=== PATIENT | female | born 1965 | race Caucasian/White ===

== ENCOUNTER 2024-10-03 08:50 | Emergency (ER) | payer OTHER, SELFPAY ==
[2024-10-03 09:22] VITALS: BP 163/99; PULSE 86; RESP 17; TEMP 36.5; O2SAT 99
--- OUTSIDE RECORDS SUMMARY | 2024-10-03 09:27 | XMS_ITS | Clinical Summary ---
Author Organization [facility] Address [address] [place] [address] Care Team Providers Care Director Physical Name Role Phone Kristina Cheema Karley CHUN Primary Care Pr ovider Allergies No known active allergies Medications pravastatin (PRAVACHOL) 20 mg tablet take 1 tablet by oral route every day at bedtime 30 11 3 Active Additional Information Patient not taking.Reported on 03/17/2019 cetirizine-pseu doephedrine ER (ZyrTEC-D) 5-120 mg per 12 hr tablet Take one by mouth one time per day 0 0 9 Active predniSONE (DELTASONE) 10 mg tablet Take 6 tablets oral daily for 2 days then 4 tablets daily for 2 days then 3 tablets daily for 2 days then 2 tablets daily for 2 days then 1 tablet daily for 2 days then stop. 32 tablet 8 Active Additional Information Patient not taking.Reported on 03/17/2019 famotidine (PEPCID) 20 mg tablet Take 1 tablet (20 mg total) by mouth 2 (two) times a day. 30 tablet 8 Active Additional Information Patient not taking.Reported on 03/17/2019 raNITIdine (ZANTAC) 150 mg tablet Take 150 mg by mouth 2 (two) times a day Active Active Problems Problem Noted Date Diagnosed Date Atopic rhinitis 01/06/2014 Overview (11/26/2016): ALLERGIC RHINITIS NOS Generalized anxiety disorder 01/06/2014 Overview (11/26/2016): AYANA (generalized anxiety disorder) Assessment & Plan (03/02/2017 11:06 AM CDT): Increase exercise. Refer to [facility] for counseling. Try generic Zoloft 50 mg half tablet at bedtime for 8 days then full tablet daily thereafter. Side effects discussed and she is to call back if any develop. Call back in 1 month to increase the dose if no improvement. She is already scheduled for follow-up visit in May and will evaluate again at that time or sooner if needed. 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 Hx Other Medical deviated septum Family History Medical History Relation Name Comments Breast cancer Cousin 2 Cancer, breast ; Arelis in 40's Other Father 12/30 myelodysplasia ; Cause of : myelodysplasia/CABG - 60's; Diabetes Father's Sister Diabetes marleny litus; Depression Mother Depression; Relation Name Status Comments Cousin 1 Alive Cousin 2 Father 12/30 Alive Father's Sister Mother Social History Tobacco Use Types Packs/Day Years Used Date Smoking Tobacco: Every Day Comments:Smoking History Pac ks/day: 0.25 Packs Alcohol Use Standard Drinks/Week Comments Yes 0 (1 standard drink = 0.6 oz pur e alcohol) Comments Unknown Sex and Gender Information Value Date Recorded Sex Assigned at Not on file Legal Sex Female 3:03 PM [employer]LY[employer] Gender Identity Not on file Sexual Orientation Not on file Obstetrics History Last Filed Vital Signs Vital Sign Reading Time Taken Comments Blood Pressure 128/86 03/17/2019 8:33 AM CDT Pulse 88 03/17/2019 8:33 AM CDT Temperature 37 C (98.6 F) 03/17/2019 8:33 AM CDT Respiratory Rate 16 03/17/2019 8:33 AM CDT Oxygen Saturation 97% 03/17/2019 8:33 AM CDT Inhaled Oxygen Concentration - - Weight 73.3 kg (161 lb 9.6 oz) 03/17/2019 8:33 A M CDT Height 167.6 cm (5' 6 ) 03/17/2019 8:33 AM CDT Body Mass Index 26.08 03/17/2019 8:33 AM CDT Plan of Treatment Not on file Insurance [employer]US Care Teams Director Physical Relationship Specialty Start Date End Date Kristina Cheema PA PCP - General 05/15/18
--- OUTSIDE RECORDS SUMMARY | 2024-10-03 09:27 | XMS_ITS ---
Author Organization [facility] Address [address] [place] [address] Care Team Providers Care Distributor Advertising Material Name Role Phone Marcelle Hutchison Unavailable [phone] Allergies No Known Allergies REASON FOR VISIT Urticaria and angioedema follow-up - no interval episodes Medications Medication SIG (Take, Route, Frequency, Duration) Notes Start Date End Date Status Cetirizine HCl 10 MG 1 tablet Orally Twi ce a day for 30 days Active Famotidine 20 MG 1 tablet Orally Twic e a day for 30 days Active Fluticasone Propionate 50 MCG/ACT 2 sprays in each nostril Nasally Twice a day for 30 days Active EPINEPHrine 0.3 MG/0.3ML as directed Inj ection as needed for 30 days Active PriLOSEC OTC 20 MG 1 tablet 30 minutes before morning meal Orally Once a day Active Social History Tobacco Use: Social History Observation Description Date Details (start date - stop date) Current Smoker NA - NA Tobacco Control (Standard) Question Answer Notes Tobacco use: Current smoker Vital Signs Blood pressure systolic 148 mm Hg 05/17/20 24 Blood pressure diastolic 91 mm Hg 024 Height 66 in 05/17/2024 Weight 172.2 lbs 05/17/2024 BMI 27.79 kg/m2 05/17/2024 Oximetry 97 % 05/17/2024 Encounters Encounter Location Date Provider Diagnosis [facility] [address] [facility] [place] [address] 05/17/2024 Marcelle Hutchison Idiopathic urticaria L50.1 ; Allergic rhinitis due to pollen J30.1 ; Allergic rhinitis due to animal (cat) (dog) hair and dander J30.81 ; Other allergic rhinitis J30.89 ; Other chronic allergic conjunctivitis H10.45 and Angioneurotic edema, subsequent encounter T78.3XXD Assessments Encounter Date Diagnosis (ICD Code) Assessment Notes Treatment Notes Treatment Clinical Notes Section Notes 05/17/2024 Idiopathic urticaria (ICD-10 - L50.1) Considerations for hives and angioedema include autoimmune, viral, stress, or idiopathic. Labs showed normal TSH, tryptase, CMP, CBC, and sed rate. Continue treatment with Zyrtec 10 mg BID, Famotidine 20 mg BID since under good control 05/17/2024 Allergic rhinitis due to pollen (ICD-10 - J30.1) Karley clearly suffers from atopic disease based upon our skin testing and clinical history. Accordingly, we have introduced a new, aggressive medication regimen, discussed nasal washes and allergy-specific avoidance measures. We also discussed adjunctive therapies including subcutaneous, specific allergen immunotherapy as relates to the treatment and prevention of atopic disease. 05/17/2024 Allergic rhinitis due to animal (cat) (dog) hair and dander (ICD-10 - J30.81) Follow allergen avoidance, meds and consider SCIT as an adjunctive treatment to current regimen 05/17/2024 Other allergic rhinitis (ICD-10 - J30.89) 05/17/2024 Other chronic allergic conjunctivitis (ICD-10 - H10.45) Given ocular signs and symptoms I encouraged allergy avoidance measures and meds as above. If symptoms persist, consider adding additional medications including intraocular antihistamine/mast cell stabilizer, PRN 05/17/2024 Angioneurotic edema, subsequent encounter (ICD-10 - T78.3XXD) We discussed proper use of EpiPen and instruction given 05/17/2024 Other Plan Of Treatment Medication Medication Name Sig Start Date Stop Date Notes Cetirizine HCl 10 MG 1 tablet Orally Twi ce a day for 30 days Famotidine 20 MG 1 tablet Orally Twic e a day for 30 days Fluticasone Propionate 50 MCG/ACT 2 sprays in each nostril Nasally Twice a day for 30 days EPINEPHrine 0.3 MG/0.3ML as directed Inj ection as needed for 30 days Treatment Notes Assessment Notes Idiopathic urticaria Considerations for hives and angioedema include autoimmune, viral, stress, or idiopathic. Labs showed normal TSH, tryptase, CMP, CBC, and sed rate. Continue treatment with Zyrtec 10 mg BID, Famotidine 20 mg BID since under good control Allergic rhinitis due to pollen Karley pacheco suffers from atopic disease based upon our skin testing and clinical history. Accordingly, we have introduced a new, aggressive medication regimen, discussed nasal washes and allergy-specific avoidance measures. We also discussed adjunctive therapies including subcutaneous, specific allergen immunotherapy as relates to the treatment and prevention of atopic disease. Allergic rhinitis due to ani mal (cat) (dog) hair and dander Follow allergen avoidance, meds and consider SCIT as an adjunctive treatment to current regimen Other chronic allergic conjunctivitis Gi maia ocular signs and symptoms I encouraged allergy avoidance measures and meds as above. If symptoms persist, consider adding additional medications including intraocular antihistamine/mast cell stabilizer, PRN Angioneurotic edema, subsequent encounte r We discussed proper use of EpiPen and instruction given Next Appt Details Follow Up: 4 Months, Reason: Evaluation and Management Progress Notes * Pedro Pablo PLATTOB:1965 (6 8 yo F)Acc No.[id number]:05/17/2024 Progress Notes Patient: Karley GARCIA Provider: Mario Hutchison MD :1965 A ge:59 Y S ex:Female Date:05/17/2024 Address:[address] [place], [place] [id number] Subjective: * Chief Complaints: * U rticaria and angioedema follow-up - no interval episodes * HPI: * Introduction: I had the pleasure of seeing Kassi Platt, a 59 year old with GERD and new angioedema and urticaria presenting for f/u evaluation of urticaria and angioedema. She is alone for today's visit. She was last evaluated 04-12-2024. Since last visit no interval flares of hives or angioedema. She is taking Zyrtec 10 mg 1-2 times day. She is also taking famotidine. She is concerned stress may be playing a role in hives and angioedema. She has seen improvement in GERD with Pepcid For 6 months, she reports developing hives. She also reports episodes of hand swelling and eyelid swelling. She has pictures which show erythematous, raised areas a few inches in size. Hives are pruritic. No changes with heat or cold exposure. No change with pressure applied to her skin. She has a history of seasonal allergies and reports frequent congestion and rhinorrhea. She is taking Zyrtec D with some improvement. No decrease in sense of smell. No history of recurrent sinusitis. 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 She has a dog in her home. No basement in her home. Today, she reports no fevers, chills, night sweats or other constitutional symptoms. * Headache: AYANA-7 (Generalized Anxiety Disorder-7) O monroe the last 2 weeks, how often have you felt nervous, anxious, or on edge? N early every day (3) O monroe the last 2 weeks, how often have you not been able to stop or control worrying? M ore than half the days (2) O monroe the last 2 weeks how often have you been worrying too much about different things? N early every day (3) O monroe the last 2 weeks, how often have you had trouble relaxing? N early every day (3) O monroe the last 2 weeks, how often have you been so restless that it was hard to sit still? M ore than half the days (2) O monroe the last 2 weeks, how often have you become easily annoyed or irritated? S everal days (1) O monroe the last 2 weeks, how often have you felt afraid, as if something awful might happen? S everal days (1) T otal score 1 5 * ROS: A LLERGY: scratchy throat Y es. i tchy eyes Y es. e ar fullness Y es. s inus congestion Y es. P ositive p er the HPI and history, otherwise unremarkable. S PECIAL SENSES: Positve for n one. c ataracts Y es. g laucoma?No. l oss of hearing N o. i tching in ears N o. l oss of balance N o.?loss of smell N o. d ry eyes N o. e xcessive tearing Y es. i tching eyes Yes. l oss of taste N o. c onjunctivitis N o. e ar infections N o. C ONSTITUTIONAL: weight gain Y es. l oss of appetite N o. f ever?No. w eight loss N o. f atigue Y es. n ight sweats Y es. P ositive for n one. E NT: cold N o. c ough N o. e pistaxis N o. h earing loss N o. c hange in voice N o. s ore throat N o. r inging in ears?No. s inus pain N o. P ositive p er the HPI and history, otherwise unremarkable.? R ESPIRATORY: shortness of breath N o. c hest pain N o. c hest congestion N o. c ough N o. P ositive p er the HPI and history, otherwise unremakable. O PHTHALMOLOGY: diminished vision Y es. e ye irritation N o. d rainage from eyes N o. b lurring of vision N o. s easonal eye sx N o. P ositive for p er the HPI and history, otherwise unremarkable. i tching N o. s ensitivity to light N o. d ischarge N o. w atering Y es. s welling of the eyelids Y es. r edness N o. E NDOCRINOLOGY: fatigue Y es. p olydipsia N o. p olyuria N o. w eight loss N o. s leep disturbance Y es. c old intolerance N o. h eat intolerance Y es. d iabetes N o. P ositive for n one. C ARDIOLOGY: chest pain N o. l eg edema N o. d izziness N o. s hortness of breath N o. P ositive for n one. G ASTROENTEROLOGY: dysphagia N o. a bdominal pain N o. n ausea?No. v omiting N o. c onstipation N o. d iarrhea N o. b lood in stool?No. i ndigestion Y es. h emorrhoids N o. P ositive for n one. U ROLOGY: difficulty urinating N o. b lood in urine N o. u rinary incontinence Y es. r ecurrent UTI N o. P ositive for n one. ? D ERMATOLOGY: rash N o. m ole N o. l umps N o. d ry or sensitive skin N o. h paula (urticaria) Y es. a cne N o. s kin cancer N o. P ositive for p er the HPI and history, otherwise unremakable. N EUROLOGY: headache N o. t ingling numbness Y es. s eizures N o. i nsomnia Y es. m naveed loss N o. d izziness N o. g ait abnormality N o. P ositive for n one. H EMATOLOGY/LYMPH: Positive for n one. M USCULOSKELETAL: joint swelling N o. j oint pain N o. l eg cramps N o. j oint stiffness N o. s ciatica Y es. o steoporosis N o. f racture N o. c arpal tunnel N o. g out N o. P ositive for n one. ? P SYCHOLOGY: high stress level Y es. d epression Y es. s leep disturbances Y es. s uicidal ideation N o. e ating disorder N o. m ental or physical abuse N o. a nxiety Y es. P ositive for n one. F EMALE REPRODUCTIVE: heavy periods N o. h ot flashes N o. a bnormal vaginal discharge N o. s exually active N o. i nfertility N o. f requent yeat infections N o. p elvic pain N o. b reast pain N o. n ipple discharge N o. A re you ? N o. A re you planning on a future pregancy? N o. A ll other review of systems per the HPI and history, otherwise unremarkable. * Medical History: * Surgical History: C -Section 10/24/1988 * Hospitalization/Major Diagno stic Procedure: D enies Past Hospitalization * Family History: F ather: , myelodysplasia, diagnosed with Allergic rhinitis due to allergen. M other: . no history of urticaria or angioedema. * Social History: M arital Status What is your marital status? d ivorced A lcohol Screening Do you ever drink alcoholic beverages? Y es Frequency? E very 6 months S moking Have you ever smoked tobacco: c urrent smoker Additional Findings: Tobacco User M oderate cigarette smoker (10-19 cigs/day) How old were you when you started smoking? 1 6 How often do you smoke cigarettes? e very day How soon after you wake up do you smoke your first cigarette??6 - 30 minutes How many cigarettes do you smoke per day? 1 1 to 20 Are you interested in quitting? T hinking about quitting Are you a : c urrent smoker R ecreational drug use Have you ever used recreational drugs? N o D etails on consumption of certain products? Do you regularly consume products with aspartame; Equal or NutraSweet? N o Do you regularly consume products with artificial coloring??Yes Have you ever noticed worsening of your rash with these food items? N o A re any of the following personal care products containing fragrance, dye or preservatives used regularly? Shampoo: Y es Conditioner: Y es Soap: Y es Fabric Softener: Y es Deodorant: Y es Perfume, cologne, after shave: Y es Air freshners or other scented products: Y es Hair coloring dyes or rinses: Y es O ccupation Are you currenly employed? Y es Employment status? 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 number of years?39 Do you believe that your current or previous occupation has any bearing on your illness? N o Please describe the effect of your illness on your job p oor concentration Do you have any pending or planned legal action against your current or former employer which pertains to your medical illness? N o Do you anticipate that your evaluation will be used in any legal action against your current employer or former employer? N o Have you had any job with high exposure to fumes, chemicals, dust or other noxious substances? N o Are you currently a student? N o E nvironmental History Living environment: p rivate home Where is the home located? n ear any major factories or industries Age of home: 9 0 How long have you lived there? 5 years or more How many people live in the home? 1 H ome description Basement: N o Smokers in the home? Y es Air Conditioning? Y es Central Air? Y es Forced air heating? Y es Gas or electric? g as Fireplace? Y es Used how often? o ther Wood burning stove? N o Do you vacuum the home? Y es Pillow and mattress dust-proof encasings? N o Do you use a humidifier? N o Do you own any pets? Y es What kind(s)? (click all that apply) d og Where do your pets sleep? a nywhere in the house Fabric softeners used? Y es Plants in the home? Y es How many? 1 Where are they kept? k [facility] Is there carpeting in your bedroom? Y es Age of carpet? 1 6 What is the age of your mattress (years)? 3 What material(s) are used to manufacture your bedding and pillow? o ther What material are your bedding items made of? n atural fiber (e.g. cotton) Do you sleep with quilts or blankets or a duvet? Y es What material? n atural fiber (e.g. cotton) How many dogs? 1 T obacco Control (Standard) Tobacco use: C urrent smoker * Medications: T akingPriLOSEC OTC 20 MG Tablet Delayed Release 1 tablet 30 minutes before morning meal Orally Once a day Cetirizine HCl 10 MG Tablet 1 tablet Orally Twice a day Famotidine 20 MG Tablet 1 tablet Orally Twice a day Fluticasone Propionate 50 MCG/ACT Suspension 2 sprays in each nostril Nasally Twice a day EPINEPHrine 0.3 MG/0.3ML Solution Auto-injector as directed Injection as needed Taking PriLOSEC OTC 20 MG Tablet Delayed Release 1 tablet 30 minutes before morning meal Orally Once a day Taking Cetirizine HCl 10 MG Tablet 1 tablet Orally Twice a day Taking Famotidine 20 MG Tablet 1 tablet Orally Twice a day Taking Fluticasone Propionate 50 MCG/ACT Suspension 2 sprays in each nostril Nasally Twice a day Taking EPINEPHrine 0.3 MG/0.3ML Solution Auto-injector as directed Injection as needed DiscontinuedCetirizine HCl 10 MG Tablet 1 tablet Orally Once a day Medication List reviewed and reconciled with the patientDiscontinued Cetirizine HCl 10 MG Tablet 1 tablet Orally Once a day Medication List reviewed and reconciled with the patient * Allergies: N .K.D.A.no[Allergies Verified] Objective: * Vitals: B P:148/91mm Hg, HR:99/min, Pulse Oximetry:97%, Ht: 66 in, Wt: 172.2 lbs, BMI:27.79Index. * Examination: G eneral examination: General appearance: p leasant, well-developed, well-nourished. HEENT: c onjunctiva are clear bilaterally, no tenderness to palpation of the sinuses, TM's without evidence of acute infection, turbinates 2+ swollen and pale inferiorly bilaterally, clear rhinorrhea is present, deviated septum, posterior oropharynx is erythematous and cobblestoning is present, erythema on pharyngeal wall, no exudates, no tongue swelling, and uvula is midline. Oral cavity: n ormal, no lesions. Neck, thyroid : s upple, non-tender, no anterior cervical lymphadenopathy. Breasts : n ot performed. Heart: R RR, S1-S2, no murmurs, no rubs, no gallops. Lungs: c lear to auscultation and percussion in all lung betancourt, no wheezes or crackles. Neurologic exam: u nremarkable. Skin: n ormal, no rash, dermatographism, urticaria, angioedema. Peripheral pulses: n ormal (2+) bilaterally. Back: n ormal. Extremities: n ormal ROM, no clubbing, no cyanosis, no edema. Genitalia: n ot performed. Assessment: * Assessment: 1. I diopathic urticaria - L50.1 (Primary) 2 . A llergic rhinitis due to pollen - J30.1 3 . A llergic rhinitis due to animal (cat) (dog) hair and dander - J30.81 4 . O ther allergic rhinitis - J30.89 5 . O ther chronic allergic conjunctivitis - H10.45 6 . A ngioneurotic edema, subsequent encounter - T78.3XXD Plan: * Treatment: 2. A llergic rhinitis due to pollen Start Fluticasone Propionate Suspension, 50 MCG/ACT, 2 sprays in each nostril, Nasally, Twice a day, 30 days, 1, Refills 0. Notes: Karley clearly suffers from atopic disease based upon our skin testing and clinical history. Accordingly, we have introduced a new, aggressive medication regimen, discussed nasal washes and allergy-specific avoidance measures. We also discussed adjunctive therapies including subcutaneous, specific allergen immunotherapy as relates to the treatment and prevention of atopic disease. ? 3. A llergic rhinitis due to animal (cat) (dog) hair and dander Notes: Follow allergen avoidance, meds and consider SCIT as an adjunctive treatment to current regimen 4. O ther chronic allergic conjunctivitis Notes: Given ocular signs and symptoms I encouraged allergy avoidance measures and meds as above. If symptoms persist, consider adding additional medications including intraocular antihistamine/mast cell stabilizer, PRN 5. A ngioneurotic edema, subsequent encounter Notes: We discussed proper use of EpiPen and instruction given 6. O thers Start EPINEPHrine Solution Auto-injector, 0.3 MG/0.3ML, as directed, Injection, as needed, 30 days, 1, Refills 0. * Procedure Codes: 9 6160 PT-FOCUSED HLTH RISK [id number] DOC MEDS VERIFIED W/PT OR RE * Preventive Medicine: Counseling: M edication instruction: W atch for side effects of prescribed medications, Nasal steroid/antihistamine instruction: avoid septum. E ducation: G ENERAL EDUCATION: Our staff spent an additional 30 minutes in direct contact with the patient educating them on their current diagnoses and proper treatment and prevention of symptoms and the proper use of medications. E ducation 2: A RC EDUCATION: Our staff discussed the appropriate allergen avoidance measures and medication utilization including upper airway hygiene with daily nasal washes given the patient's clinical status and diagnoses. SCIT EDUCATION: Discussed allergy immunotherapy including the relative risks, benefits and alternatives to this treatment as an adjunctive measure to current therapy, Allergy Immunotherapy: Risks: bleeding, infection, allergic reaction, anaphylaxis = severe allergic reaction that can cause ; Benefits: reduced need for medications, improved symptoms, disease modification. Alternatives: watch/wait, change medication regimen, improve allergy avoidance measures, Our staff discussed the warning signs of anaphylaxis and the indications to use self-injectable epinephrine and seek urgent or emergent care. P atient education material sent to portal? Y es C are goal follow up plan BMI management provided Y es Above Normal BMI Follow-up D ietary management education, guidance, and counseling * Follow Up: 4 Months (Reason: Evaluation and Management) * Billing Information: * Visit Code: 88111 Office Visit, Est Pt., Level 4. Modifiers: 25 * Procedure Codes: 28235 PT-FOCUSED HLTH RISK ASSMT. G8427 DOC MEDS VERIFIED W/PT OR RE. * Sign off status: Completed true * Provider: Mario Hutchison MD Date: 0 05/17/2024 Generated for Brayan poe/Dewey/Savannahitting on: 0 10/03/2024 09:27 AM HOLD WORKER History and Physical Notes * HPI (History of Present Illness) Category Sub-Category Detail Notes Category Not es *Introduction I had the pleasure o f seeing Karley Platt, a 59 year old with GERD and new angioedema and urticaria presenting for f/u evaluation of urticaria and angioedema. She is alone for today's visit. She was last evaluated 04-12-2024. Since last visit no interval flares of hives or angioedema. She is taking Zyrtec 10 mg 1-2 times day. She is also taking famotidine. She is concerned stress may be playing a role in hives and angioedema. She has seen improvement in GERD with Pepcid For 6 months, she reports developing hives. She also reports episodes of hand swelling and eyelid swelling. She has pictures which show erythematous, raised areas a few inches in size. Hives are pruritic. No changes with heat or cold exposure. No change with pressure applied to her skin. She has a history of seasonal allergies and reports frequent congestion and rhinorrhea. She is taking Zyrtec D with some improvement. No decrease in sense of smell. No history of recurrent sinusitis. 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 She has a dog in her home. No basement in her home. Today, she reports no fevers, chills, night sweats or other constitutional symptoms *Headache AYANA-7 (Generalized Anxiety Disorder-7) Over the last 2 weeks, how often have you felt nervous, anxious, or on edge?: Nearly every day (3) Over the last 2 weeks, how o ften have you not been able to stop or control worrying?: More than half the days (2) Over the last 2 weeks how of ten have you been worrying too much about different things?: Nearly every day (3) Over the last 2 weeks, how o ften have you had trouble relaxing?: Nearly every day (3) Over the last 2 weeks, how o ften have you been so restless that it was hard to sit still?: More than half the days (2) Over the last 2 weeks, how o ften have you become easily annoyed or irritated?: Several days (1) Over the last 2 weeks, how o ften have you felt afraid, as if something awful might happen?: Several days (1) Total score: 15 Examination Category Sub-Category Detail Notes Category Not es General examination HEENT: conjunctiva are clear bilaterally, no tenderness to palpation of the sinuses, TM's without evidence of acute infection, turbinates 2+ swollen and pale inferiorly bilaterally, clear rhinorrhea is present, deviated septum, posterior oropharynx is erythematous and cobblestoning is present, erythema on pharyngeal wall, no exudates, no tongue swelling, and uvula is midline Neck, thyroid : supple, non-tender, no anterior cervical lymphadenopathy Heart: RRR, S1-S2, no murmu rs, no rubs, no gallops Lungs: clear to auscultatio n and percussion in all lung betancourt, no wheezes or crackles Abdomen: Extremities: normal ROM, no clubb ing, no cyanosis, no edema General appearance: pleasant, well-devel oped, well-nourished Skin: normal, no rash, isabelle matographism, urticaria, angioedema Neurologic exam: unremarkable Oral cavity: normal, no lesions Breasts : not performed Peripheral pulses: normal (2+) bilatera lly Back: normal Genitalia: not performed
--- OUTSIDE RECORDS SUMMARY | 2024-10-03 09:28 | XMS_ITS | Patient Health Record ---
Author Organization [facility] Address [address] [place] [phone] Care Team Providers Care Plsql Developer Name Role Phone Marcelle Hutchison Unavailable [phone] Allergies No Known Allergies Results Component Value Reference Range Notes -Tryptase ([id number]) Reviewed date:04/19/2024 01:20:59 PM Interpretation:Normal Performing Lab:[facility] [id number], Phone - [phone], Director - Gray Notes/Report: Tryptase 4.0 2.2-13.2 ug/L TSH reflex to T4F Reviewed date:04/19/2024 01:20:53 PM Interpretation:Normal Performing Lab:[facility] [address] [id number], Phone - [phone], Director - Francoise Notes/Report: TSH 1.550 0.450-4.500 uIU/mL -Sedimentation Rate-Westergr en Reviewed date:04/19/2024 01:20:40 PM Interpretation:Normal Performing Lab:[facility], [address] [place] [id number], Phone - [phone], Director - Francoise Notes/Report: Sedimentation Rate-Westergren 12 0-40 mm/hr -CBC With Differential/Plate let Reviewed date:04/19/2024 01:20:47 PM Interpretation:Normal Performing Lab:[facility], [address] [place] [id number], Phone - [phone], [facility]/Report: WBC 7.4 3.4-10.8 x10E3/uL RBC 5.17 3.77-5.28 x10E6/uL Hemoglobin 15.2 11.1-15.9 g/dL Hematocrit 46.1 34.0-46.6 % MCV 89 79-97 fL MCH 29.4 26.6-33.0 pg MCHC 33.0 31.5-35.7 g/dL RDW 11.9 11.7-15.4 % Platelets 323 150-450 x10E3/uL Neutrophils 59 Not Estab. % Lymphs 30 Not Estab. % Monocytes 7 Not Estab. % Eos 3 Not Estab. % Basos 1 Not Estab. % Neutrophils (Absolute) 4.3 1.4-7.0 x10E3/uL Lymphs (Absolute) 2.2 0.7-3.1 x10E3/uL Monocytes(Absolute) 0.6 0.1-0.9 x10E3/uL Eos (Absolute) 0.2 0.0-0.4 x10E3/uL Baso (Absolute) 0.1 0.0-0.2 x10E3/uL Immature Granulocytes 0 Not Estab. % Immature Grans (Abs) 0.0 0.0-0.1 x10E3/uL -CMP (14) Reviewed date:04/19/2024 01:19:16 PM Interpretation:Normal Performing Lab:[facility], [address] [place] [id number], Phone - [phone], Director - [facility] Notes/Report: Glucose 91 70-99 mg/dL BUN 8 6-24 mg/dL Creatinine 0.69 0.57-1.00 mg/dL eGFR 101 >59 mL/min/1.73 BUN/Creatinine Ratio 12 9-23 Sodium 140 134-144 mmol/L Potassium 4.2 3.5-5.2 mmol/L Chloride 103 96-106 mmol/L Carbon Dioxide, Total 22 20-29 mmol/L Calcium 9.4 8.7-10.2 mg/dL Protein, Total 7.2 6.0-8.5 g/dL Albumin 4.4 3.8-4.9 g/dL Globulin, Total 2.8 1.5-4.5 g/dL Bilirubin, Total 0.5 0.0-1.2 mg/dL Alkaline Phosphatase 86 44-121 IU/L AST (SGOT) 16 0-40 IU/L ALT (SGPT) 14 0-32 IU/L Reason For Referral No Information Medications Medication SIG (Take, Route, Frequency, Duration) [...] Question Answer Notes Tobacco use: Current smoker Problems Problem Type SNOMED Code ICD Code Onset Dates Problem Status W/U Status Risk Notes Problem Chronic allergic conjunctivitis (50573287) Other chronic allergic conjunctivitis (H10.45) Active confirmed Problem Allergic rhinitis caused by pollen (disorder) (79296162) Allergic rhinitis due to pollen (J30.1) Active confirmed Problem Allergic rhinitis (09282441) Other allergic rhinitis (J30.89) Active confirmed Problem Allergic rhinitis caused by animal hair and dander (087908084084168) Allergic rhinitis due to animal (cat) (dog) hair and dander (J30.81) Active confirmed Vital Signs Oximetry 97 % 05/17/2024 Blood pressure diastolic 91 mm Hg 05/17/2024 Height 66 in 05/17/2024 Blood pressure systolic 148 mm Hg 05/17/2024 Weight 172.2 lbs 05/17/2024 BMI 27.79 kg/m2 05/17/2024 Encounters Encounter Location Date Provider Diagnosis [facility] [address] [facility] [address] [place] [phone] 04/12/2024 Marcelle Hutchison Idiopathic urticaria L50.1 ; Angioneurotic edema, initial encounter T78.3XXA ; Allergic rhinitis due to pollen J30.1 ; Allergic rhinitis due to animal (cat) (dog) hair and dander J30.81 ; Other allergic rhinitis J30.89 and Other chronic allergic conjunctivitis H10.45 [facility] [address] [place] [phone] 05/17/2024 Marcelle Hutchison Idiopathic urticaria L50.1 ; Allergic rhinitis due to pollen J30.1 ; Allergic rhinitis due to animal (cat) (dog) hair and dander J30.81 ; Other allergic rhinitis J30.89 ; Other chronic allergic conjunctivitis H10.45 and Angioneurotic edema, subsequent encounter T78.3XXD [address] [address] 04/10/2024 Marcelle Hutchison [address] [phone] 04/10/2024 Marcelle Hutchison Assessments Encounter Date Diagnosis (ICD Code) Assessment Notes Treatment Notes Treatment Clinical Notes Section Notes 04/12/2024 Idiopathic urticaria (ICD-10 - L50.1) Considerations for hives and angioedema include autoimmune, viral, stress, or idiopathic. Plan to order labwork for further evaluation. Start treatment with Zyrtec 10 mg BID, Famotidine 20 mg BID. Follow-up in 1 month. 04/12/2024 Angioneurotic edema, initial encounter (ICD-10 - T78.3XXA) We discussed proper use of EpiPen and instruction given 05/17/2024 Idiopathic urticaria (ICD-10 - L50.1) Considerations [...] the treatment and prevention of atopic disease. 04/12/2024 Allergic rhinitis due to pollen (ICD-10 - J30.1) Given the history and symptoms, skin testing was performed to common aeroallergens to determine atopic status. Karley clearly suffers from atopic disease based [...] as an adjunctive treatment to current regimen 04/12/2024 Allergic rhinitis due to animal (cat) (dog) [...] medications including intraocular antihistamine/mast cell stabilizer, PRN 04/12/2024 Other allergic rhinitis (ICD-10 - J30.89) 04/12/2024 Other chronic allergic conjunctivitis (ICD-10 - H10.45) Given ocular signs and symptoms I encouraged allergy avoidance measures and meds as above. If symptoms persist, consider adding additional medications including intraocular antihistamine/mast cell stabilizer, PRN 05/17/2024 Angioneurotic edema, subsequent encounter (ICD-10 - T78.3XXD) We discussed proper use of EpiPen and instruction given 05/17/2024 Other Plan Of Treatment No Information Insurance Providers Payer Name Payer Address Payer Phone Subscriber Number Group Number Insured Name Patient Relationship to Insured Coverage Start Date Coverage End Date [facility] [address] [place] [address] [id number] Karley Haji Self - patient is the insured Medical (General) History Medical History History ICD Code Acid reflux Hypertension Anxiety Hypoglycemia Hyperlipidemia Surgical History Surgery Date(Month/Year) 10/24/1988
--- OUTSIDE RECORDS SUMMARY | 2024-10-03 09:28 | XMS_ITS | Referral Summary ---
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
--- OUTSIDE RECORDS SUMMARY | 2024-10-03 09:28 | XMS_ITS ---
Author Organization [facility] Address [address] [place] [address] Care Team Providers Care Retention Manager Name Role Phone Kianna Marcelle Unavailable [phone] REASON FOR VISIT ARC follow-up Encounters Encounter Location Date Provider Diagnosis [facility] [address] [place] [address] 09/06/2024 Marcelle Hutchison Plan Of Treatment No Information Progress Notes * Pedro Pablo PLATTOB:1965 ([age] yo F)Acc No.[id number]:09/06/2024 Progress Notes Patient: Karley GARCIA Provider: Mario Hutchison MD :1965 A ge:59 Y S ex:Female Date:09/06/2024 Address:[address] [place], [place] [phone] Subjective: * Chief Complaints: * 1 . ARC follow-up. * Medical History: Objective: * Vitals: Assessment: Plan: * Treatment: * Billing Information: * Visit Code: * Procedure Codes: * Electronic signature of Anastasia Hutchison MD on 10/03/2024 at 09:27 AM DIRECTOR OUTCOMES Sign off status: Pending * Provider: Mario Hutchison MD Date: 0 09/06/2024 Generated for Printi ng/Faxing/eTransmitting on: 0 10/03/2024 09:27 AM DIRECTOR OUTCOMES
--- OUTSIDE RECORDS SUMMARY | 2024-10-03 09:35 | XMS_ITS ---
Author Organization [facility] Address [address] [place] [address] Care Team Providers Care Command And Control Systems Integrator Name Role Phone Marcelle Hutchison Unavailable [phone] Allergies No Known Allergies Results Component Value Reference Range Notes -CBC With Differential/Plate let Reviewed date:04/19/2024 01:20:47 PM Interpretation:Normal Performing Lab:[facility] [place], [address] [place] [id number], Phone - [phone], Director - Francoise Notes/Report: WBC 7.4 3.4-10.8 x10E3/uL RBC 5.17 [...] % Immature Grans (Abs) 0.0 0.0-0.1 x10E3/uL -Sedimentation Rate-Westergr en Reviewed date:04/19/2024 01:20:40 PM Interpretation:Normal Performing Lab:[facility] [address] [id number], Phone - [phone], Director - [facility]berts [facility] Notes/Report: Sedimentation Rate-Westergren 12 0-40 mm/hr -CMP (14) Reviewed date:04/19/2024 01:19:16 PM Interpretation:Normal Performing Lab:[facility] [address] [id number], Phone - [phone], [facility] Notes/Report: Glucose 91 70-99 mg/dL BUN 8 [...] 0-40 IU/L ALT (SGPT) 14 0-32 IU/L -Tryptase (563817) Reviewed date:04/19/2024 01:20:59 PM Interpretation:Normal Performing Lab:[facility] [address] [id number], Phone - [phone], Director - Gray Notes/Report: Tryptase 4.0 2.2-13.2 ug/L TSH reflex to T4F Reviewed date:04/19/2024 01:20:53 PM Interpretation:Normal Performing Lab:[facility] [place], [address] [place] [id number], Phone - [phone], Director - Francoise Notes/Report: TSH 1.550 0.450-4.500 uIU/mL REASON FOR VISIT Urticaria and angioedema Medications Medication SIG (Take, Route, Frequency, Duration) Notes Start Date End Date Status PriLOSEC OTC 20 MG 1 tablet 30 minutes before morning meal Orally Once a day Active EPINEPHrine 0.3 MG/0.3ML as directed Inj ection as needed for 30 days 04/12/2024 Active Fluticasone Propionate 50 MCG/ACT 2 sprays in each nostril Nasally Twice a day for 30 days 04/12/2024 Active Cetirizine HCl 10 MG 1 tablet Orally Twi ce a day for 30 days 04/12/2024 Active Famotidine 20 MG 1 tablet Orally Twic e a day for 30 days 04/12/2024 Active Cetirizine HCl 10 MG 1 tablet Orally Onc e a day Active Social History Tobacco Use: Social History Observation Description Date Details (start date - stop date) Current Smoker NA - NA Tobacco Control (Standard) Question Answer Notes Tobacco use: Current smoker Problems Problem Type SNOMED Code ICD Code Onset Dates Problem Status W/U Status Risk Notes Problem Allergic rhinitis caused by pollen (disorder) (16711131) Allergic rhinitis due to pollen (J30.1) Active confirmed Problem Allergic rhinitis caused by animal hair and dander (644403025808533) Allergic rhinitis due to animal (cat) (dog) hair and dander (J30.81) Active confirmed Problem Allergic rhinitis (02803285) Other allergic rhinitis (J30.89) Active confirmed Problem Chronic allergic conjunctivitis (93089582) Other chronic allergic conjunctivitis (H10.45) Active confirmed Vital Signs Blood pressure systolic 112 mm Hg 04/12/20 24 Blood pressure diastolic 63 mm Hg 024 Height 66 in 04/12/2024 Weight 177.4 lbs 04/12/2024 BMI 28.63 kg/m2 04/12/2024 Oximetry 97 % 04/12/2024 Encounters Encounter Location Date Provider Diagnosis [facility] [place] [address] [facility] [address] [place] [id number] 04/12/2024 Marcelle Hutchison Idiopathic urticaria L50.1 ; Angioneurotic edema, initial encounter T78.3XXA ; Allergic rhinitis due to pollen J30.1 ; Allergic rhinitis due to animal (cat) (dog) hair and dander J30.81 ; Other allergic rhinitis J30.89 and Other chronic allergic conjunctivitis H10.45 Assessments Encounter Date Diagnosis (ICD Code) Assessment [...] proper use of EpiPen and instruction given 04/12/2024 Allergic rhinitis due to pollen (ICD-10 [...] atopic disease. 04/12/2024 Allergic rhinitis due to animal (cat) (dog) hair and dander (ICD-10 - J30.81) Follow allergen avoidance, meds and consider SCIT as an adjunctive treatment to current regimen 04/12/2024 Other allergic rhinitis (ICD-10 - J30.89) 04/12/2024 Other chronic allergic conjunctivitis (ICD-10 - H10.45) Given ocular signs and symptoms I encouraged allergy avoidance measures and meds as above. If symptoms persist, consider adding additional medications including intraocular antihistamine/mast cell stabilizer, PRN Plan Of Treatment Medication Medication Name Sig Start Date Stop Date Notes EPINEPHrine 0.3 MG/0.3ML as directed Inj ection as needed for 30 days 04/12/2024 Fluticasone Propionate 50 MCG/ACT 2 sprays in each nostril Nasally Twice a day for 30 days 04/12/2024 Cetirizine HCl 10 MG 1 tablet Orally Twi ce a day for 30 days 04/12/2024 Famotidine 20 MG 1 tablet Orally Twic e a day for 30 days 04/12/2024 Treatment Notes Assessment Notes Idiopathic urticaria Considerations for hives and angioedema include autoimmune, viral, stress, or idiopathic. Plan to order labwork for further evaluation. Start treatment with Zyrtec 10 mg BID, Famotidine 20 mg BID. Follow-up in 1 month. Angioneurotic edema, initial encounter W e discussed proper use of EpiPen and instruction given Allergic rhinitis due to pollen Given th e history and symptoms, skin testing was performed [...] medications including intraocular antihistamine/mast cell stabilizer, PRN Next Appt Details Follow Up: 4 Weeks, Reason: Evaluation and Management Procedure Notes * Category Sub-Category Detail Notes Skin Testing Number of Skin Tests Performed (including controls): Aeroallergen: Yes Epicutaneous: 72 Total (Epicutaneous): 72 Epicutaneous (New) skin testing was per formed to common aeroallergens, revealing positive reactions to, Kirill, Birch, Black Castleberry, Cuney, Elm, Mccurtain (Shagbark), Maple, Justice Mix, Lyn[place]urst Mix, [place] (Red), [place]urst (White), Allen (Yellow), Sweet Gum, Moseley (Kuwaiti), Willow Spring (Black), Bermuda, Brome, Fescue, Red/Joplin, Arpit, K. Blue (January), Orchard, Redtop, Skanee, Laz, Cocklebur, Dock, Red (Sheep [place]), Dock, Yellow, Hemp, Jace Water, Kochia, Mugwort, Plantain, French, Cat Hair, Cat Pelt, Cochroach (Mix), UF Dog, Feather Mix, Mouse, DM f, DM p, Ragweed Mix, Joan Albicans, Cladosprium, Penicillium Mix, Saccharomyces, Sarocladium Strictum, positive and negative controls responded appropriately Progress Notes * Pedro Pablo PLATTOB:1965 ([age] yo F)Acc No.[id number]:04/12/2024 Progress Notes Patient: Karley GARCIA Provider: Mario Hutchison MD :1965 A ge:58 Y S ex:Female Date:04/12/2024 Address:[address] [place] [address] Subjective: * Chief Complaints: * U rticaria and angioedema * HPI: * Introduction: I had the pleasure of seeing Kassi Platt, a 58 year old with GERD and new angioedema and urticaria presenting for evaluation of urticaria and angioedema. She is alone for today's visit. She does not have a PCP. For 6 months, she reports developing hives. She also reports episodes of hand swelling and eyelid swelling. She has pictures which show erythematous, raised areas a few inches in size. Hives are pruritic. Last week,she developed upper lip swelling and brought photos of significant swelling. She took Benadryl and improvement in swelling within 24 hours. She is developed episodes of hives and angioedema a few times monthly but not weekly. No changes with heat or cold exposure. No change with pressure applied to her skin. She has not been able to find triggers. She has a history of seasonal allergies and reports frequent congestion and rhinorrhea. S he is taking Zyrtec D with some improvement. No decrease in sense of smell. No history of recurrent sinusitis. 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 She has a dog in her home. No basement in her home. She has never undergone allergy skin testing or received allergy immunotherapy. She denies a history of physician-diagnosed allergic rhinitis, recurrent sinusitis or otitis media, recurrent pneumonia, asthma/RAD, eczema, food allergies, medication allergies, contact dermatitis, latex allergy, eosinophilic esophagitis or stinging insect hypersensitivity, . * Allergic Rhinoconjunctivitis: Allergic rhinitis D o you have or suspect you have allergic rhinitis (itchy eyes, sneezing, congestion or runny nose triggered by allergies)? Y es W hich areas and what symptoms are involved? Please fill out each section below as needed. e yes,nose,sinuses W hich of the following trigger your allergic rhinitis symptoms? t ree pollen,grass pollen,weed pollen,spring (season),summer (season),fall (season),winter (season) D o you have any of the following other symptoms associated with your allergic rhinitis? l oud snoring,restless sleep Eyes S pecific affected area: b oth (bilateral) O ccurence? i ntermittent H ow frequent? w eekly W hen does this mostly occur? a nytime S ymptoms: i tching E ffective treatments: o ral antihistamines (Zyrtec or Yadira or Claritin) Nose S pecific area affected: b oth (bilateral) O ccurence? c ontinuous W hen does this mostly occur? a nytime S ymptoms? c ongestion,sneezing jags,postnasal drainage,awaken very congested in the a.m. E ffective treatments? o ral antihistamines (Zyrtec or Yadira or Claritin) Sinuses D o you have sinus pain? N o H ave you lost sense of taste? N o H ave you been treated with antibiotics for sinusitis? N o H ave any of the following treatments improved your sinus symptoms? o ral antihistamines (Zyrtec or Yadira) H ave you ever had a CT scan or xray? N o H ave you ever undergone sinus surgery? N o Cough F requency: i nfrequent I s cough more bothersome during night? N o I s phlegm produced? Y es S putum color? c lear I s significant phlegm produced during the night? Y es E ffective treatments? r eflux medications (TUMS or Zantac or Prilosec) * Infections: Vaccination History H ave you ever had a flu shot? Y es D ate of last flu shot? 0 04/24/2019 H ave you ever had a pneumococcal vaccine (HYE-Yncocba-Fqopuvezd)? N o H ave you ever had a tetanus vaccine (FQxi-Saiv-Jp)? Y es D ate of last tetanus vaccine? 0 04/24/2019 D id it contain pertussis as well? Y es Ear Infections D o you have frequent ear infections? N o Sinusitis (Sinus infections) D o you have frequent episodes of sinusitis??No Sinus Symptoms and Surgery D o you have chronic or recurrent sinus symptoms? Y es H ave you used any of the following treatments for your sinuses? n vivek spray decongestants,oral antihistamines,oral decongestants W hich provided benefit? o ral antihistamines,oral decongestants H ave you ever had a sinus CT or X-Ray? N o H ave your ever undergone sinus surgery? N o Bronchitis History D o you get frequent bronchitis? N o Pneumonia History H ave you ever had pneumonia or recurrent pneumonia? Y es H ow many episodes in your entire life? 1 H ow many episodes in the past 12 months? 0 H ave you been treated with antibiotics for pneumonia? Y es H ave you been hospitalized for treatment??Yes Skin and Other Infections D o you get frequent skin infections (cellulitis)? N o D o you get any other frequent infections??No * Other Rash and Contact Dermatitis: Other rashes and contact dermatitis H ave you ever had any other form of rash or contact dermatitis? N o * Urticaria: Urticaria (hives) D o you have recurrent hives? Y es A pproximately, when did your hives start??08/23/2023 H ow many weeks of symptoms have you had in your whole life? (adding up total days of symptoms throughout your whole life) l ess than 6 weeks H ow many hives outbreaks have you had in your whole life? 2 H ow many outbreaks have you had in the past 12 months? 2 H ow frequently do you have hives outbreaks??yearly H ow long do outbreaks last (whole rash)? 2 4-72 hours H ow long does one individual hive last? If you were to [place] one hive with a pen, how long would that area be affected? 2 4-72 hours W hat time(s) of day do your hives occur? a ny time (no predilection) C olor of your hives? r ed B ramon parts involved? l egs T ypical number of separate hives? 2 T ypical size of hives? > 10 cm D escription of hives? r aised above the surrounding unaffected skin,poorly-defined border S ymptoms of hives? i tching,swelling D o any of the following physical stimuli initate or worsen your hives? s harp (scratching) pressure A ssociated symptoms? a ngioedema (swelling) D o you get angioedema (deep swelling) with your hives? (angioedema is painful, not itchy and commonly lasts for days) - If yes fill out the Angioedema page in this questionnaire y es - sometime W hat improves your hives? o ral antihistamines (e.g. Zyrtec or Zantac) A s the hives resolve, are there skin changes??no (normal skin returns) D o you use any of the following personal care products that contain fragrance, dyes or preservatives? s hampoo,conditioner,soap,laundry detergent,fabric softener,deodorant,other D o you regularly consume products with aspartame (Equal or NutraSweet)? N o D o you ever take any of the following medications? N onsteroids anti-inflammatories (NSAIDs like ibuprofen or Advil or Motrin or naproxen or Aleve) * Medication allergy: Medication Allergy D o you feel you are allergic to any medications? N o H ave you been evaluated by an credit report checker previously for possible drug allergy? N o * Stinging Insects: Insect Reaction(s) H ave you ever experienced a stinging insect reaction? N o * Prior Evaluations and Treatments: Prior evaluations and treatments H ave you been evaluated by another physician for allergic rhinitis, cough, wheezing, asthma, urticaria, angioedema, atopic dermatitis or eczema??Yes W hat type(s) of of provider(s)? O ther H ave you undergone testing for any aforementioned conditions or symptoms? N o H ave you ever been on allergy immunotherapy??No H ave you ever passed out during a blood draw, shot or vaccination? N o Last dose of antihistamine: c etirizine (Zyrtec) 0 03/27/2024 d iphenhydramine (Benadryl) 0 04/04/2024 H as your antihistamine been effective in controlling any of your symptoms? Y es S ymptoms related to what condition(s)? a llergic rhinitis,urticaria or hives,angioedema or swelling D o you take any other psychiatric medication??No * Food allergy: Food Allergy D o you currently have or have you ever had any proven or suspected food allergies? N o * Eosinophilic GI: Eosinophilic Gastrointestinal Disease D o you have difficulty swallowing foods or have you previously needed to have your esophagus dilated for food impaction or have you been diagnosed with eosinophilic gastrointestinal disease? N o * Angioedema: Angioedema (swelling) D o you have recurrent swelling (angioedema)??Yes A pproximately, when was your last episode of swelling? 0 04/05/2024 H ow frequently do you have symptoms? o ther H ow long do episodes of swelling last? 2 4-72 hours H ow long does one spot of swelling last? If you were to [place] one spot with a pen, how long would the area be affected? 2 4-72 hours W hat time(s) of day does the swelling occur??anytime (no predilction) B ramon parts involved? a sophie,eyelids,upper lip A s the swelling resolves, does the skin change in appearance? n o (normal skin returns) W hat improves the angioedema/swelling? o ral antihistamine (Zyrtec or Yadira) I s there any family history of unexplained swelling, life-threatening swelling or early or unexplained ? N o D o you ever take any of the following medications? N onsteroids anti-inflammatories (NSAIDs like ibuprofen or Advil or Motrin or naproxen or Aleve),Vitamins,Supplements * ROS: A LLERGY: scratchy throat Y [...] Past Hospitalization * Family History: F ather: myelodysplasia, diagnosed with Allergic rhinitis due to allergen. no history of urticaria or angioedema. * [...] use: C urrent smoker * Medications: T akingCetirizine HCl 10 MG Tablet 1 tablet Orally Once a day PriLOSEC OTC 20 MG Tablet Delayed Release 1 tablet 30 minutes before morning meal Orally Once a day Medication List reviewed and reconciled with the patientTaking Cetirizine HCl 10 MG Tablet 1 tablet Orally Once a day Taking PriLOSEC OTC 20 MG Tablet Delayed Release 1 tablet 30 minutes before morning meal Orally Once a day Medication List reviewed and reconciled with the patient * Allergies: N .K.D.A.no[Allergies Verified] Objective: * Vitals: B P:112/63mm Hg, HR:73/min, Pulse Oximetry:97%, Ht: 66 in, Wt: 177.4 lbs, BMI:28.63Index. * Examination: G eneral examination: General appearance: [...] urticaria - L50.1 (Primary) 2 . A ngioneurotic edema, initial encounter - T78.3XXA 3 . A llergic rhinitis due to pollen - J30.1 ?4. A llergic rhinitis due to animal (cat) (dog) hair and dander - J30.81 5 . O ther allergic rhinitis - J30.89 6 . O ther chronic allergic conjunctivitis - H10.45 Plan: * Treatment: 2. A ngioneurotic edema, initial encounter Start EPINEPHrine Solution Auto-injector, 0.3 MG/0.3ML, as directed, Injection, as needed, 30 days, 1, Refills 0. Notes: We discussed proper use of EpiPen and instruction given 3. A llergic rhinitis due to pollen Start Fluticasone Propionate Suspension, 50 MCG/ACT, 2 sprays in each nostril, Nasally, Twice a day, 30 days, 1, Refills 0. Notes: Given the history and symptoms, skin testing [...] the treatment and prevention of atopic disease. 4. A llergic rhinitis due to animal (cat) (dog) hair and dander Notes: Follow allergen avoidance, meds and consider SCIT as an adjunctive treatment to current regimen 5. O ther chronic allergic conjunctivitis Notes: Given ocular signs and symptoms I encouraged allergy avoidance measures and meds as above. If symptoms persist, consider adding additional medications including intraocular antihistamine/mast cell stabilizer, PRN * Procedures: S kin Testing: Number of Skin Tests Performed (including controls): A eroallergen Y es E picutaneous 7 2 T otal (Epicutaneous) 7 2 Epicutaneous (New) s kin testing was performed to common aeroallergens, revealing positive reactions to, Vanzant, Birch, Black Castleberry, Cuney, Elm, Mccurtain (Shagbark), Maple, Justice Mix, [place]urst Mix, [place]st (Red), [place]urst (White), Allen (Yellow), Sweet Gum, Moseley (K[place]i), Willow Spring (Black), Bermuda, Brome, Fescue, Red/Joplin, Arpit, K. Blue (January), Orchard, Redtop, Skanee, Laz, Cocklebur, Dock, Red (Sheep [place]), Dock, Yellow, Hemp, Jace Water, Kochia, Mugwort, Plantain, French, Cat Hair, Cat Pelt, Cochroach (Mix), UF Dog, Feather Mix, Mouse, DM f, DM p, Ragweed Mix, Joan Albicans, Cladosprium, Penicillium Mix, Saccharomyces, Sarocladium Strictum, positive and negative controls responded appropriately. * Procedure Codes: 9 5004 PRICK TESTS, Units: 72.00 69106 PT-[facility]OCUSED [facility] RISK [id number] DOC MEDS VERIFIED W/PT OR RE * [...] guidance, and counseling * Follow Up: 4 Weeks (Reason: Evaluation and Management) * Billing Information: * Visit Code: 33602 Office Visit, New Pt., Level 4. Modifiers: 25 * Procedure Codes: 63332 PRICK TESTS. Units: 72.00. 87049 PT-FOCUSED [facility] RISK ASSMT. G8427 DOC MEDS VERIFIED W/PT OR RE. Images * mobile_04/12/2024 08:51:21 * Sign off status: Completed true * Provider: Mario Hutchison MD Date: 0 04/12/2024 Generated for Brayan poe/Dewey/Savannahitting on: 0 10/03/2024 09:27 AM VOCATIONAL COUNSELOR History and Physical Notes * HPI (History of Present Illness) Category Sub-Category Detail Notes Category Not es *Introduction I had the pleasure of seeing Karley Platt, a 58 year old with GERD and new angioedema and urticaria presenting for evaluation of urticaria and angioedema. She is alone for today's visit. She does not have a PCP. For 6 months, she reports developing hives. She also reports episodes of hand swelling and eyelid swelling. She has pictures which show erythematous, raised areas a few inches in size. Hives are pruritic. Last week,she developed upper lip swelling and brought photos of significant swelling. She took Benadryl and improvement in swelling within 24 hours. She is developed episodes of hives and angioedema a few times monthly but not weekly. No changes with heat or cold exposure. No change with pressure applied to her skin. She has not been able to find triggers. She has a history of seasonal allergies and reports frequent congestion and rhinorrhea. She is taking Zyrtec D with some improvement. No decrease in sense of smell. No history of recurrent sinusitis. 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 She has a dog in her home. No basement in her home. She has never undergone allergy skin testing or received allergy immunotherapy. She denies a history of physician-diagnosed allergic rhinitis, recurrent sinusitis or otitis media, recurrent pneumonia, asthma/RAD, eczema, food allergies, medication allergies, contact dermatitis, latex allergy, eosinophilic esophagitis or stinging insect hypersensitivity, *Allergic Rhinoconjunctivitis Eyes Specific affected area:: both (bilateral) Occurence?: intermittent How frequent?: weekly When does this mostly occur?: anytime Symptoms:: itching Effective treatments:: oral antihistamin es (Zyrtec or Yadira or Claritin) Cough Frequency:: infrequent Is cough more bothersome during night?: No Is phlegm produced?: Yes Sputum color?: clear Is significant phlegm produced during the night?: Yes Effective treatments?: reflux medication s (TUMS or Zantac or Prilosec) Nose Specific area affected:: both (b ilateral) Occurence?: continuous When does this mostly occur?: anytime Symptoms?: congestion,sneezi ng jags,postnasal drainage,awaken very congested in the a.m. Effective treatments?: oral antihistamin es (Zyrtec or Yadira or Claritin) Sinuses Do you have sinus pain?: No Have you lost sense of taste?: No Have you been treated with antibiotics f or sinusitis?: No Have any of the following tr eatments improved your sinus symptoms?: oral antihistamines (Zyrtec or Yadira) Have you ever had a CT scan or xray?: No Have you ever undergone sinus surgery?: No Allergic rhinitis Do you have or suspe ct you have allergic rhinitis (itchy eyes, sneezing, congestion or runny nose triggered by allergies)?: Yes Which areas and what symptoms are involved? Please fill out each section below as needed.: eyes,nose,sinuses Which of the following trigger your allergic rhinitis symptoms?: tree pollen,grass pollen,weed pollen,spring (season),summer (season),fall (season),winter (season) Do you have any of the following other symptoms associated with your allergic rhinitis?: loud snoring,restless sleep *Infections Vaccination History Have you ever had a flu sh ot?: Yes Date of last flu shot?: 04/24/2019 Have you ever had a pneumococcal vaccine (AIO-Cqgafvg-Idifqytod)?: No Have you ever had a tetanus vaccine (DTa p-Tdap-Td)?: Yes Date of last tetanus vaccine?: 04/24/2019 Did it contain pertussis as well?: Yes Ear Infections Do you have frequent ear infecti ons?: No Sinusitis (Sinus infections) Do you have frequen t episodes of sinusitis?: No Sinus Symptoms and Surgery Do you have c hronic or recurrent sinus symptoms?: Yes Have you used any of the fol lowing treatments for your sinuses?: nasal spray decongestants,oral antihistamines,oral decongestants Which provided benefit?: oral antihistam bhanu,oral decongestants Have you ever had a sinus CT or X-Ray?: No Have your ever undergone sinus surgery?: No Bronchitis History Do you get frequent bronchiti s?: No Pneumonia History Have you ever had pneumonia or recurrent pneumonia?: Yes How many episodes in your entire life?: 1 How many episodes in the past 12 months?: 0 Have you been treated with antibiotics for pneumonia? : Yes Have you been hospitalized for treatment?: Yes Skin and Other Infections Do you get frequent sk in infections (cellulitis)?: No Do you get any other frequent infections ?: No *Other Rash and Contact Dermatitis Other rashes and contact dermatitis Have you ever had any other form of rash or contact dermatitis?: No *Urticaria Urticaria (hives) Do you have re current hives?: Yes Approximately, when did your hives start?: 08/23/2023 How many weeks of symptoms have you had in your whole life? (adding up total days of symptoms throughout your whole life): less than 6 weeks How many hives outbreaks have you had in your whole life?: 2 How many outbreaks have you had in the past 12 months?: 2 How frequently do you have hives outbreaks?: yearly How long do outbreaks last (whole rash)?: 24-72 hours How long does one individual hive last? If you were to [place] one hive with a pen, how long would that area be affected?: 24-72 hours What time(s) of day do your hives occur?: any time (no predilection) Color of your hives?: red Body parts involved?: legs Typical number of separate hives?: 2 Typical size of hives?: > 10 cm Description of hives?: raised above the surrounding unaffected skin,poorly- defined border Symptoms of hives?: itching,swelling Do any of the following physical stimuli initate or worsen your hives?: sharp (scratching) pressure Associated symptoms?: angioedema (swelling) Do you get angioedema (deep swelling) with your hives? (angioedema is painful, not itchy and commonly lasts for days) - If yes fill out the Angioedema page in this questionnaire: yes - sometime What improves your hives?: oral antihistamines (e.g. Zyrtec or Zantac) As the hives resolve, are there skin changes?: no (normal skin returns) Do you use any of the following personal care products that contain fragrance, dyes or preservatives?: shampoo,conditioner,soap,laundry detergent,fabric softener,deodorant,other Do you regularly consume products with aspartame (Equal or NutraSweet)?: No Do you ever take any of the following medications?: Nonsteroids anti- inflammatories (NSAIDs like ibuprofen or Advil or Motrin or naproxen or Aleve) *Medication allergy Medication Allergy Do you fe el you are allergic to any medications? : No Have you been evaluated by a n credit report checker previously for possible drug allergy?: No *Stinging Insects Insect Reaction(s) Have you ev er experienced a stinging insect reaction? : No *Prior Evaluations and Treatments Prior evaluations and treatments Have you been evaluated by another physician for allergic rhinitis, cough, wheezing, asthma, urticaria, angioedema, atopic dermatitis or eczema?: Yes What type(s) of of provider(s)?: Other Have you undergone testing for any afore mentioned conditions or symptoms?: No Have you ever been on allergy immunother apy?: No Have you ever passed out during a blood draw, shot or vaccination?: No Last dose of antihistamine: cetirizine (Zyrtec): 03/27/2024 diphenhydramine (Benadryl): 04/04/2024 Has your antihistamine been effective in controlling any of your symptoms?: Yes Symptoms related to what condition(s)?: allergic rhinitis,urticaria or hives,angioedema or swelling Do you take any other psychiatric medica tion?: No *Food allergy Food Allergy Do you currently have or have you ever had any proven or suspected food allergies?: No *Eosinophilic GI Eosinophilic Gastroi ntestinal Disease Do you have difficulty swallowing foods or have you previously needed to have your esophagus dilated for food impaction or have you been diagnosed with eosinophilic gastrointestinal disease?: No *Angioedema Angioedema (swelling) Do you hav e recurrent swelling (angioedema)?: Yes Approximately, when was your last episode of swelling?: 04/05/2024 How frequently do you have symptoms?: other How long do episodes of swelling last?: 24-72 hours How long does one spot of swelling last? If you were to [place] one spot with a pen, how long would the area be affected?: 24-72 hours What time(s) of day does the swelling occur?: anytime (no predilction) Body parts involved?: arms,eyelids,upper lip As the swelling resolves, does the skin change in appearance?: no (normal skin returns) What improves the angioedema/swelling?: oral antihistamine (Zyrtec or Yadira) Is there any family history of unexplained swelling, life-threatening swelling or early or unexplained ?: No Do you ever take any of the following medications?: Nonsteroids anti- inflammatories (NSAIDs like ibuprofen or Advil or Motrin or naproxen or Aleve),Vitamins,Supplements Examination Category Sub-Category Detail Notes Category Not [...]
--- NOTE | 2024-10-03 09:48 | ED_ITS ---
HPI - URI/Sore Throat General Chief Complaint: Upper Respiratory Infection Stated Complaint: Swollen Throat Time Seen by Provider: 10/03/24 09:49 Source: patient, RN notes reviewed and old records reviewed Mode of arrival: ambulatory Limitations: no limitations History of Present Illness HPI Narrative: 59-year-old female presents to the [facility], states that she had a feeling of the right side of her throat or tonsil feeling swollen started in middle the night. Had use salt water gargles and Advil. Related Data Allergies Allergy/AdvReac Type Severity Reaction Status Date / Time No Known Allergies Allergy Verified 10/03/24 09:29 Review of Systems Review of Systems: All systems reviewed & are unremarkable except as noted in HPI and below Constitutional: Constitutional: Reports no additional constitutional c omplaints ENT: Reports as per HPI and Reports sore throat Cardiovascular: Cardiovascular: Reports no additional cardiovascular complaints, Denies chest pain and Denies dyspnea Respiratory: Respiratory: Reports no additional respiratory complaints, Denies chest congestion, Denies cough and Denies dyspnea Musculoskeletal: Musculoskeletal: Reports no additional musculoskeletal complaints Integumentary/Breasts: Skin/Breast: Reports system reviewed and no additional complaints, except as docu PMFSH Comments At the time of my signature, I reviewed and agree with the nursing past medical, surgical, social, and family history. There is no relevant family history pertinent to the patient complaint. Exam Const: General: cooperative, healthy appearing, comfortable, no acute distress, well developed, alert and well nourished Nutritional Appearance: well nourished Orientation/consciousness: patient oriented x3 Limitations: no limitations HENMT: Head: normal to inspection Ears: hearing grossly normal bilaterally, external ears normal, TM's normal bilaterally, EAC's normal, mastoids normal and no periauricular adenopathy Mouth: Yes Normal oral and palatal mucosa present, Yes lip normal, Yes tongue normal and Yes moist mucous membranes Throat: abnormal tonsil bilateral erythema; no exudates and no hypertrophy Eyes: General: appearance normal, both eyes and all related structures Alignment and Position: alignment normal Neck: Neck: normal visual inspection, full ROM, no lymphadenopathy and no meningeal signs Chest: Chest palpation & inspection: normal inspection of the chest Resp: Effort & Inspection: normal respiratory effort and able to speak in complete sentences Auscultation: clear to auscultation bilaterally, no crackles, no rales, no rhonchi and no wheezes Cardio: Rate: regular rate Skin: General skin exam: normal color and no rashes or lesions noted Neuro: General: patient oriented x3, gait normal, moves all extremities and no meningeal signs Cognition (Neuro): normal cognition Speech: normal speech Gait exam (Neuro): Normal gait present Extrem: General: normal to inspection, full ROM, capillary refill normal and normal gait Psych: Appearance: grossly normal and well kempt Mental Status: mental status grossly normal Speech and movement: Normal speech and movement present and Clear speech present Affect: normal affect Attitude: cooperative Course Course Level of Care: Express Care Visit Vital Signs Vital signs: Vital Signs Temperature 97.7 F 10/03/24 09:22 Pulse Rate 86 10/03/24 09:22 Respiratory Rate 17 10/03/24 09:22 Blood Pressure 163/99 H 10/03/24 09:22 Pulse Oximetry 99 10/03/24 09:22 Oxygen Delivery Room Air 10/03/24 09:22 Temperature 97.7 F 10/03/24 09:22 Pulse Rate 86 10/03/24 09:22 Respiratory Rate 17 10/03/24 09:22 Blood Pressure 163/99 H 10/03/24 09:22 Pulse Oximetry 99 10/03/24 09:22 Oxygen Delivery Room Air 10/03/24 09:22 Reviewed MDM - URI/Sore Throat MDM Narrative Medical decision making narrative: Patient sitting comfortably in exam room. Nontoxic, vitals stable. Patient in no acute distress. Patient's blood pressure is mildly elevated, encourage patient to follow-up with primary care provider list of providers have been given to her. Patient did test positive for strep throat. Patient appropriate for outpatient treatment with close follow-up. Discharge instructions reviewed with patient, as well as provided in writing per nursing staff. The instructions also include specific and strict return/GO TO THE ER as well as f/u information. All questions have been answered, and the patient deny any further questions with discharge and discharge plan. Some parts of this dictation were generated by voice recognition software and may contain typographical and/or grammatical inaccuracies. Differential Diagnosis Differential diagnosis: Likely upper respiratory infection, sinusitis, viral infection, bronchitis, influenza and pharyngitis Lab Data Labs: Lab Results 10/03/24 Range/Units 09:58 POC Grp A Strep Screen Positive (Negative) Reviewed Critical Care Time Critical Care Time Critical Care Time: No Discharge Plan Discharge Clinical Impression: Strep pharyngitis Patient Disposition: Home, Self-Care Condition: Stable Instructions: Strep Throat (DC) Additional Instructions: If you are having a hard time finding a physician please call our [facility] group liaison at [phone]. After 24-48 hours on antibiotics, Throw the toothbrush away, start using a new one. Please be sure to wash bed linens especially pillow cases. Repeat once you finish the antibiotics. Do not share drinks. Take Motrin alternating with Tylenol for pain and fever alternating every 4 hours. Increase fluids, avoid caffeine. Give plenty of water, juice, Gatorade, Pedialyte, ice pops in Jell-O Follow up with Primary provider if not getting better this week For new or worsening symptoms go directly to the emergency room Patient Language: Pashto Prescriptions: New amoxicillin 875 mg tablet 875 mg PO Q12H Qty: 20 0RF Follow-up/Referrals: PHYSICIAN,GREENSKEEPER SUPERVISOR [Primary Care Provider] - Stand Alone Forms: Work/School Release IP Time of Disposition: 09:59
[2024-10-03 10:00] LABS: EDSTREPNEGPOS1 Positive (Negative)
== END 2024-10-03 10:03 | disposition home or self-care (01) ==
PROVIDERS: Emergency Provider Nurse Practitioner
DX: J02.0 Streptococcal pharyngitis (principal)
CPT/HCPCS: 87880; 99203; G0463